=== PATIENT | female | born 1990 | race Caucasian/White ===

== ENCOUNTER 2021-06-09 02:23 | Emergency (ER) | payer BC ==
[2021-06-09] MEDS ORDERED: Ondansetron 4 MG/2 ML SDV IVPUSH ONE ×2 (02:51→07:16)
[2021-06-09] MEDS ORDERED: Morphine 4 MG/ML Syringe IVPUSH ONE ×2 (02:52→03:48)
[2021-06-09] MEDS ORDERED: Sodium Chloride 0.9% 1,000 ML IV ONE ×2 (02:52→03:21)
[2021-06-09] MEDS ORDERED: Piperacillin/Tazobactam 4.5 GM in Sodium Chloride 0.9% 100 ML IV ONE (03:21)
[2021-06-09] MEDS ORDERED: Morphine 4 MG/ML Syringe ONE (03:42)
[2021-06-09] MEDS ORDERED: Iopamidol 612 MG/ML 100 ML Bottle IVPUSH ONE (04:08)
[2021-06-09] MEDS ORDERED: Sodium Chloride 0.9% 10 ML SDV FLUSH ONE (04:08)
[2021-06-09] MEDS ORDERED: Ketorolac 15 MG/ML SDV IVPUSH ONE (04:11)
[2021-06-09] MEDS ORDERED: Sodium Chloride 0.9% 1,000 ML IV SCH (04:30)
[2021-06-09] MEDS ORDERED: Morphine 2 MG/ML SYRINGE IVPUSH ONE ×3 (05:14→07:16)
[2021-06-09] MEDS ORDERED: diphenhydrAMINE 50 MG/ML SDV IVPUSH ONE (06:24)
== END 2021-06-09 07:20 ==
LOC: JD.ED 02:23
DX: A41.9 Sepsis, unspecified organism (principal); K85.91 Acute pancreatitis with uninfected necrosis, unspecified; F10.10 Alcohol abuse, uncomplicated; Z20.822 Contact with and (suspected) exposure to COVID-19
CPT/HCPCS: 36415; 74177; 76705; 80053; 80307; 81001; 83605; 83690; 84703; 85025; 87040; 87635; 96365; 96375; 96376; 99284; J1200; J1885; J2270; J2405; J2543; J7030; Q9967; 99291; J3490; U0002